=== PATIENT | male | born 1960 | race African-American/Black ===

== ENCOUNTER 2017-09-13 15:54 | Emergency (ER) | payer MEDICAID ==
[~2017-09-13] VITALS: Ht 180.3 cm; Wt 100.7 kg
[~2017-09-13 15:54] MED LIST: FURO-92 PO; OMEP10CA2 PO; POTA10TA6 PO; PROP10TA PO; SPIR100T PO
[2017-09-13] MEDS ORDERED: HYDROcodone/APAP 5/325 TABLET PO ONE (17:30)
[2017-09-13] MEDS ORDERED: HYDROcodone/APAP 5/325 TABLET ONE (17:35)
[2017-09-13 19:08] VITALS: BP 131/81
== END 2017-09-13 19:19 | disposition home or self-care (01) ==
LOC: ED 19:13
DX: G89.29 Other chronic pain (principal); M54.41 Lumbago with sciatica, right side; M54.16 Radiculopathy, lumbar region; R19.7 Diarrhea, unspecified; Z90.49 Acquired absence of other specified parts of digestive tract
CPT/HCPCS: 81001; 87077; 87086; 87186; 99284

== ENCOUNTER 2019-01-04 14:04 | Observation (INO) | payer MEDICAID ==
[~2019-01-04] VITALS: Ht 180.3 cm; Wt 100.2 kg
[~2019-01-04 14:04] MED LIST changes: -PROP10TA PO; +PROP10TA16 PO
--- NOTE | 2019-01-04 14:04 | NUR ---
58 YR OLD MALE ARRIVED VIA EMS. PER REPORT PT STOOD UP, HAD SYNCOPAL EPISODE. PT HAS HAD APPROX 3 PRIOR EPISODES X 1 MONTH. PT WITH CONCERN WITH RESP STATUS. STATES "WHEN TAKE ABOUT 10 STEPS, GET DIZZY AND LIGHTHEADED AND FEELS SOB. PT ARRIVES A&O X 4. PT WAS AT [facility] IN OCT FOR APPROX 12 DAYS. PT STATES WAS THERE BECAUSE OF RESP CONCERNS. DC WITH ? "SOMETHING TO DO WITH HEART" PT PLACED ON MAINTENANCE MECHANIC TECHNICIAN, SR WITH INVERTED T WAVES. AUTO BP AND PULSE OX. DR HOLDER AT BEDSIDE TO EVAL PT.
[2019-01-04] MEDS ORDERED: TAMS-11 PO (14:20)
--- NOTE | 2019-01-04 14:28 | NUR ---
REPORT TO LORNE Rai RN.
--- NOTE | 2019-01-04 14:29 | NUR ---
OBP done, pt c/o SOB when standing- ERP aware.
[2019-01-04] MEDS ORDERED: SODIUM CHLORIDE FLUSH 10ML SYR IVF ONE (14:30)
[2019-01-04 14:44] LABS: MEAN CORPUSCULAR HEMOGLOBIN 24.5 pg (27.5-34.5); MEAN CORPUSCULAR HGB CONC 31.5 g/dL (33.2-36.2); MEAN CORPUSCULAR VOLUME 77.6 fL (81-97); MEAN PLATELET VOLUME 14.3 fL (7.4-10.4); PLATELET COUNT 113 x10^3/uL (130-400); RED BLOOD COUNT 5.58 x10^6/uL (4.38-5.82); RED CELL DISTRIBUTION WIDTH 20.1 % (9.4-14.8)
[2019-01-04 14:47] LABS: ALANINE AMINOTRANSFERASE 47 U/L (12-78); ALBUMIN 2.9 g/dL (3.4-5.0); ANION GAP 9 mmol/L (5-15); CALCIUM 8.5 mg/dL (8.5-10.1); CHLORIDE 110 mmol/L (98-107); CREATININE 1.83 mg/dL (0.7-1.3)
[2019-01-04 14:50] LABS: ALKALINE PHOSPHATASE 210 U/L (45-117); BILIRUBIN,TOTAL 1.1 mg/dL (0.2-1.0); TOTAL PROTEIN 7.5 g/dL (6.4-8.2)
[2019-01-04 14:56] LABS: TROPONIN I 0.214 ng/mL (0.000-0.045)
[2019-01-04 14:58] LABS: BASOPHILS # (AUTO) 0.01 x10^3/uL (0-0.1); BASOPHILS % (AUTO) 0 % (0-1); EOSINOPHILS # (AUTO) 0.05 x10^3/uL (0-0.4); EOSINOPHILS % (AUTO) 2 % (1-7); LYMPHOCYTES # (AUTO) 0.66 x10^3/uL (1-3.4); LYMPHOCYTES % (AUTO) 22 % (22-44); MD MORPH REVIEW ONLY; MONOCYTES % (AUTO) 10 % (2-9); NEUTROPHILS # (AUTO) 1.94 x10^3/uL (1.8-6.8); NEUTROPHILS % (AUTO) 66 % (42-75)
[2019-01-04 14:59] LABS: ANISOCYTOSIS 1+; HYPOCHROMIA 1+; MICROCYTOSIS 1+
--- NOTE | 2019-01-04 14:59 | NUR ---
pt upright on gurney with eyes closed, responds approp to staff, NAD at rest, comfort measures provided, call light within reach.
[2019-01-04 15:00] LABS: OVALOCYTES 1+; TARGET CELLS 1+
[2019-01-04 15:01] LABS: <PLATELET ESTIMATE> DECREASED; POLYCHROMASIA 1+
[2019-01-04 15:02] LABS: LARGE PLATELETS 1+
[2019-01-04] MEDS ORDERED: ASPIRIN 81 MG TABLET CHEW ONE (15:22)
[2019-01-04] MEDS ORDERED: ASPIRIN 81 MG TABLET CHEW PO ONE (15:30)
[2019-01-04] MEDS ORDERED: SODIUM CHLORIDE 0.9% 1,000ML IVBOLUS ONE (15:30)
--- NOTE | 2019-01-04 15:56 | NUR ---
pt remains upright on gurney awake & comfotable, responds approp to staff, NAD at rest, comfort measures provided, call light within reach. [facility] at BS
--- NOTE | 2019-01-04 16:14 | NUR ---
Pt to be admitted to [facility], room 510-2. Report called to Ericka.
[2019-01-04 16:40] VITALS: BP 113/82
[2019-01-04 17:49] LABS: TROPONIN I 0.203 ng/mL (0.000-0.045)
[2019-01-04] MEDS ORDERED: FERR325T5 PO (18:22)
[2019-01-04 18:41] VITALS: BP 104/75
[2019-01-04 22:50] LABS: TROPONIN I 0.182 ng/mL (0.000-0.045)
[2019-01-05 00:53] VITALS: BP 115/92
[2019-01-05 01:31] LABS: AMPHETAMINE SCREEN, URINE Positive (Negative); BARBITURATE SCREEN, URINE Negative (Negative); BENZODIAZEPINE SCREEN, URINE Negative (Negative); CANNABINOID SCREEN, URINE Positive (Negative); COCAINE SCREEN, URINE Negative (Negative); CULTURE INDICATED? YES; METHADONE SCREEN, URINE Negative (Negative); MICROSCOPIC INDICATED; OPIATE SCREEN, URINE Positive (Negative)
[2019-01-05 05:02] LABS: MEAN CORPUSCULAR HEMOGLOBIN 25.3 pg (27.5-34.5); MEAN CORPUSCULAR HGB CONC 32.9 g/dL (33.2-36.2); MEAN CORPUSCULAR VOLUME 76.8 fL (81-97)
[2019-01-05 05:03] LABS: CHLORIDE 110 mmol/L (98-107)
[2019-01-05 05:10] LABS: ALANINE AMINOTRANSFERASE 44 U/L (12-78); ALBUMIN 2.9 g/dL (3.4-5.0); ALKALINE PHOSPHATASE 201 U/L (45-117); ANION GAP 6 mmol/L (5-15); BILIRUBIN,TOTAL 1.3 mg/dL (0.2-1.0); CALCIUM 8.6 mg/dL (8.5-10.1); TOTAL PROTEIN 7.4 g/dL (6.4-8.2)
[2019-01-05 05:33] LABS: BASOPHILS # (AUTO) 0.01 x10^3/uL (0-0.1); BASOPHILS % (AUTO) 1 % (0-1); EOSINOPHILS # (AUTO) 0.06 x10^3/uL (0-0.4); EOSINOPHILS % (AUTO) 2 % (1-7); LYMPHOCYTES # (AUTO) 0.79 x10^3/uL (1-3.4); LYMPHOCYTES % (AUTO) 31 % (22-44); MD SCAN; MEAN PLATELET VOLUME 11.3 fL (7.4-10.4); MONOCYTES # (AUTO) 0.36 x10^3/uL (0.2-0.8); MONOCYTES % (AUTO) 14 % (2-9); NEUTROPHILS # (AUTO) 1.32 x10^3/uL (1.8-6.8); NEUTROPHILS % (AUTO) 52 % (42-75); PLATELET COUNT 79 x10^3/uL (130-400)
[2019-01-05] MEDS ORDERED: TAMSULOSIN 0.4 MG CAP.ER.24H PO SCH (09:00)
[2019-01-05] MEDS ORDERED: POTASSIUM CHLORIDE 10 MEQ TABLET.ER PO SCH (09:00)
[2019-01-05] MEDS ORDERED: FUROSEMIDE 40 MG TABLET PO SCH (09:00)
[2019-01-05 09:03] VITALS: BP 116/87
[2019-01-05] MEDS ORDERED: LIDODERM 5% PATCH TD ONE (12:00)
[2019-01-05 14:09] VITALS: BP 123/87
== END 2019-01-05 18:59 | disposition home or self-care (01) ==
LOC: ED 15:33 → EDIP 15:34 → INTOOBSV 15:34 → 5SO 16:29
PROVIDERS: ADMIT Family Medicine; ATTEND Family Medicine
DX: R55 Syncope and collapse (principal); K76.81 Hepatopulmonary syndrome; K74.60 Unspecified cirrhosis of liver; B19.20 Unspecified viral hepatitis C without hepatic coma; I27.21 Secondary pulmonary arterial hypertension; F10.10 Alcohol abuse, uncomplicated; D47.3 Essential (hemorrhagic) thrombocythemia; D72.819 Decreased white blood cell count, unspecified; E86.0 Dehydration; E87.2 Acidosis; F15.10 Other stimulant abuse, uncomplicated; F12.10 Cannabis abuse, uncomplicated; J98.4 Other disorders of lung; N28.9 Disorder of kidney and ureter, unspecified; Z87.891 Personal history of nicotine dependence
CPT/HCPCS: 36415; 71045; 80053; 80307; 81001; 83605; 83880; 84484; 85025; 87086; 93005; 93880; 99284; G0378; J7030